=== PATIENT | female | born 1935 | race Caucasian/White ===

== ENCOUNTER 2016-12-04 07:35 | Inpatient (IN) | payer OTHER ==
[~2016-12-04] VITALS: Ht 167.6 cm; Wt 63.0 kg
--- NOTE | 2016-12-04 07:35 | NUR ---
Placed in room 2 . Placed on cardiac monitor technician, blood pressure machine and pulse oximeter. To gown for exam. Side rails up.Report given to darleen.
--- NOTE | 2016-12-04 07:35 | NUR ---
Pt was brought to bed 2 by ALS, pt complains of pain to the back of the head that radiates to the right neck and arm. Pt had a syncopal episode at home and hit head, pt states "it feels like a hammer hit her head", pt states she does not remember passing out but was on the floor. No hematoma or laceration noted to head, pt is aox 2, has some confusion. Pt states takes medications but does not remember what she takes. No other injuries/complaints per pt or noted.
[2016-12-04 07:38] VITALS: BP_SYST 154
--- NOTE | 2016-12-04 07:38 | NUR ---
ER at bedside examining patient.
--- NOTE | 2016-12-04 07:54 | NUR ---
# 20 gauge angiocath placed to LAC. Use of asceptic technique. Opsite placed over site. Blood return noted. Blood for lab drawn from site. Flushed with 10 cc of normal saline. No evidence of infiltration noted. Patient tolerated well.
--- NOTE | 2016-12-04 08:00 | NUR ---
Pt went to radiology in stable condition
[2016-12-04 08:05] LABS: BASOPHILS # (AUTO) 0.1 K/uL (0.0-0.2); BASOPHILS % (AUTO) 0.9 % (0.0-2.0); EOSINOPHILS # (AUTO) 0.3 K/uL (0.0-0.4); HEMATOCRIT 39.4 % (36-48); HEMOGLOBIN 12.5 g/dL (12.0-16.0); LYMPHOCYTES # (AUTO) 1.5 K/uL (1.0-5.5); LYMPHOCYTES % (AUTO) 26.4 % (20.5-51.5); MEAN CORPUSCULAR HEMOGLOBIN 29 pg (27-31); MEAN CORPUSCULAR HGB CONC 32 % (32-36); MEAN CORPUSCULAR VOLUME 90 fL (79.0-98.0); MONOCYTES # (AUTO) 0.5 K/uL (0.0-1.0); MONOCYTES % (AUTO) 8.1 % (1.7-9.3); NEUTROPHILS # (AUTO) 3.2 K/uL (1.8-7.7); NEUTROPHILS % (AUTO) 59.6 % (40.0-70.0); PLATELET COUNT (AUTO) 205 K/uL (130-430); RED BLOOD CELL COUNT(AUTO) 4.37 MIL/uL (4.2-6.2); RED CELL DISTRIBUTION WIDTH 12.9 % (9.0-15.0); WHITE BLOOD COUNT (AUTO) 5.6 K/uL (4.8-10.8)
[2016-12-04 08:09] LABS: ANION GAP 6 (5-15); CALCIUM 9.3 mg/dL (8.4-11.0); CHLORIDE 104 mmol/L (98-107); CREATININE 0.97 mg/dL (0.55-1.30); GLUCOSE 113 mg/dL (70-99); POTASSIUM 4.1 mmol/L (3.5-5.1); SODIUM SERUM 139 mmol/L (136-145); UREA NITROGEN, BLOOD 10 mg/dL (8-21)
[2016-12-04 08:14] LABS: ALANINE AMINOTRANSFERASE 21 U/L (12-78); ALBUMIN 3.5 g/dL (3.4-4.8); ASPARTATE AMINOTRANSFERASE 17 U/L (10-37); PROTHROMBIN TIME 10.5 SECS (9.5-12.5); TOTAL BILIRUBIN 0.4 mg/dL (0.0-1.0)
--- NOTE | 2016-12-04 08:25 | NUR ---
Pt returned from radiology in stable condiiton
--- NOTE | 2016-12-04 09:15 | NUR ---
Called son Stef and informed him that the pt will be admitted to the hospital, son states will come to see the pt later.
--- NOTE | 2016-12-04 09:50 | NUR ---
Patient will be admitted to care of Dr Ghotra. Admitted to telemetry unit. Will go to room 104A. Belongings list completed. Summary report printed. Report will be given at bedside.
[2016-12-04 10:05] VITALS: BP_SYST 144
--- NOTE | 2016-12-04 10:05 | NUR ---
ADMIT NOTE Received pt from ER to the floor with a diagnosis of Syncope. Admission process initiated. Patient oriented to pain management, call light within reach of patient
[2016-12-04 10:17] VITALS: BP_SYST 144
[2016-12-04] MEDS ORDERED: DONE5TAB3 PO (10:47)
[2016-12-04] MEDS ORDERED: TEMA15CA51 PO (10:47)
[2016-12-04] MEDS ORDERED: QUET50TA13 PO (10:47)
[2016-12-04] MEDS ORDERED: TEMAZEPAM 15 MG CAPSULE PO PRN (11:00)
--- NOTE | 2016-12-04 11:22 | NUR ---
CONSULT CARDIO SYNCOPE DR ROBERTO [phone] S/W [facility] @[id number]
--- NOTE | 2016-12-04 11:30 | NUR ---
RN ROUNDS PATIENT TRYING TO GET OUT OF BED, PATIENT REORIENTED TO SURROUNDINGS, PATIENT IS VERY ANXIOUS, WILL CONTINUE TO MONITOR,
--- NOTE | 2016-12-04 12:41 | NUR ---
RN ROUNDS PATIENT IS VERY CONFUSED, KEEPS GETTING UP OUT OF BED, NURSE AND STAFF REORIENTS PATIENT, PATIENT STILLS TRY TO GET OUT OF BED, PATIENT IS CLOSE TO NURSING STATION, WILL CONTINUE TO MONITOR, BED IN LOWEST POSITION, THREE SIDE RAILS UP, CALL LACY LEFT WITHIN REACH OF PATIENT, FALL PRECAUTIONS IN PLACE
--- NOTE | 2016-12-04 14:29 | NUR ---
RN ROUNDS PATIENT RESTING IN BED WITH EYES CLOSED, NO SIGNS OF DISTRESS NOTED, BREATHING IS EVEN AND UNLABORED, CALL LACY LEFT NEXT TO PATIENT'S HAND, FALL PRECAUTIONS IN PLACE WILL CONTINUE TO MONITOR
[2016-12-04 16:40] VITALS: BP_SYST 153
--- NOTE | 2016-12-04 16:55 | NUR ---
RN ROUNDS PATIENT LYING IN BED AT THE MOMENT, PATIENT IS CONFUSED, REORIENTED PATIENT BACK TO SURROUNDINGS, NO OTHER NEEDS AT THIS TIME, WILL CONTINUE TO MONITOR, FALL PRECAUTIONS IN PLACE.
--- NOTE | 2016-12-04 18:43 | NUR ---
CLOSING NOTE PATIENT IN STABLE CONDITION, ALL NEEDS MET, WILL ENDORSE PATIENT TO CAFE ASSOCIATE NURSE, PATIENT LYING IN BED, NO SIGNS OF DISTRESS NOTED, CALL LACY LEFT WITHIN REACH OF PATIENT, SIDE RAILS UP, BED ALARM ON, FALL PRECAUTIONS IN PLACE, WILL CONTINUE TO MONITOR.
[2016-12-04 20:00] VITALS: BP_SYST 134
--- NOTE | 2016-12-04 20:00 | NUR ---
Initial PM Assessment Pt was received fully awake and alert. Speech is clear and pt is able to make her needs known. Pt is oriented to her name and place. Pt is also forgetful. No c/o pain or discomfort and no acute distress noted. Saline locks in RFA and LAC are patent and without any signs of infiltration. Fall and safety precautions are in place. Call light is with pt and bed alarm is on. Pt was instructed not to get out of bed without calling for assistance and pt verbalized understanding. Will continue to monitor pt.
[2016-12-04] MEDS: QUEtiapine FUMARATE 25 MG TABLET PO SCH (20:39)
--- NOTE | 2016-12-04 20:39 | NUR ---
HS Medication/Snack HS medication given and pt ate 100% HS snack of 1 cup Custard. No c/o pain or discomfort. Call light is with pt and bed alarm is on.
--- NOTE | 2016-12-04 22:00 | NUR ---
Rounds Pt is sleeping comfortably in bed. No respiratory distress noted. Call light is with pt and bed alarm is on. Will continue to monitor pt.
[2016-12-05] VITALS (7 sets, daily range): BP systolic 118–146
--- NOTE | 2016-12-05 | NUR ---
Rounds Pt is sleeping without any distress noted. Call light is with pt and bed alarm is on.
--- NOTE | 2016-12-05 07:20 | NUR ---
AM ROUNDS: PATIENT AWAKE DURING ROUNDS. REPORT GIVEN AT BEDSIDE BY NIGHT NURSE CJ. CALL LIGHT WITH IN REACH. BED AT LOWEST POSITION AND LOCKED. BED ALARM ON. CONTINUE TO MONITOR.
[2016-12-05] MEDS: DONEPEZIL HCL 5 MG TABLET (ARICEPT) PO SCH (09:32)
--- NOTE | 2016-12-05 09:35 | NUR ---
Medications: Morning medication given to patient.
--- NOTE | 2016-12-05 11:00 | NUR ---
Urine: Assisted patient to the toilet, voided. Urine sample taken and sent to laboratory for urinalysis as ordered.
--- NOTE | 2016-12-05 12:17 | NUR ---
Rounds: Urine collected at this time. Patient is awake. She is eating her lunch tray at this time. Breathing comfortably no respiratory distress noted.
[2016-12-05 12:47] LABS: BILIRUBIN,URINE NEGATIVE (NEGATIVE); CLARITY/URINE CLEAR (CLEAR); COLOR,URINE YELLOW (YELLOW); GLUCOSE,URINE NEGATIVE (NEGATIVE); KETONES,URINE NEGATIVE (NEGATIVE); LEUKOCYTE ESTERASE ,URINE 3+ (NEGATIVE); NITRITE, URINE NEGATIVE (NEGATIVE); PROTEIN URINE NEGATIVE (NEGATIVE); UROBILINOGEN,URINE 0.2 (0.2-1.0)
[2016-12-05 12:48] LABS: BLOOD, URINE TRACE (NEGATIVE)
[2016-12-05 12:51] LABS: BACTERIA,URINE FEW /HPF (None Seen); RBC,URINE 0-3 /HPF (0-3)
--- NOTE | 2016-12-05 14:36 | NUR ---
Rounds: Patient asleep in her bed resting comfortably. Breathing even and non labored. No complain of pain.
--- NOTE | 2016-12-05 16:11 | NUR ---
ROUNDS: PATIENT IS RESTING IN HER BED. RESPIRATION NON LABORED. ASSISTED TO TOILET AND PATIENT WENT BACK TO BED. nO COMPLAIN OF DISCOMFORT.
[2016-12-05] MEDS ORDERED: TEMAZEPAM 15 MG CAPSULE PO PRN (17:33)
--- NOTE | 2016-12-05 17:36 | NUR ---
PSYCH CONSULT CALLED TO DR NESBITT, DR AGUILA IRON LAUNDER OPERATOR, RE: DEMENTIA. SPOKE TO ARCADIO
[2016-12-05] MEDS: cefTRIAXone 1 GM IVPB PREMIX 50 ML IV SCH (18:13)
--- NOTE | 2016-12-05 18:13 | NUR ---
IV NOTES: IV INFILTRATED. IV RE SITED AT LEFT FOREARM USING G#20,DUE IV ANTIBIOTICS GIVEN ORDERED.
--- NOTE | 2016-12-05 19:05 | NUR ---
Closing: Patient in her bed talking to her family. Her breathing is non labored and no acute distress noted. Antibiotic IV is infusing at this time. Tolerating without feeling discomfort. Family by the bedside talking to pt.
--- NOTE | 2016-12-05 19:35 | NUR ---
INITIAL NOTE Patient resting on the bed. No acute distress. Respiration even and unlabored. Verbally responsive with confusion. AO x 1. Denied of pain. Skin warm and dry to touch. SL intact to LFA, patent, no redness, no swelling. Discussed the safety issue, use call light within reached, and plan of care, verbally understanding. Safety measure maintained. Bed in low position, bed alarm on, side rails up. Call light within reached. Will continue to monitor.
--- NOTE | 2016-12-05 21:00 | NUR ---
ROUND Patient resting on the bed comfortable. No acute distress. safety measure maintained. Call light within reached. Bed in low position, side rails up, bed alarm on. Continue to monitor.
[2016-12-05] MEDS: QUEtiapine FUMARATE 25 MG TABLET PO SCH (21:41)
--- NOTE | 2016-12-05 22:50 | NUR ---
AMBULATED TO BATHROOM, NO ACUTE DISTRESS
[2016-12-06] VITALS (8 sets, daily range): BP systolic 108–148
--- NOTE | 2016-12-06 00:02 | NUR ---
ROUND Patient resting on the bed with eyes closed. No acute distress. Respiration even and unlabored. Safety measure maintained. Bed in low position, bed alarm on, side rails up. Call light within reached. Continue to monitor.
--- NOTE | 2016-12-06 02:05 | NUR ---
ROUND Patient resting on the bed with eyes closed. Respiration even and unlabored. No acute distress. Safety measure maintained. Bed in low position, side rails up, bed alarm on. Call light within reached. Continue to monitor.
--- NOTE | 2016-12-06 03:00 | NUR ---
NOTE Patient woke up and asked where am I? Reinstructed patient in hospital and the environment and told patient is safe to stay here, verbally understanding. Offered patient to use bathroom but patient that went already. Safety measure maintained. Bed in low position, bed alarm on, side rails up. Call light within reached. Continue to monitor.
--- NOTE | 2016-12-06 05:05 | NUR ---
ROUND Patient resting on the bed with eyes closed. No acute distress. Respiration even and unlabored. Safety measure maintained. Call light within reached. Bed in low position, bed alarm on, side rails up. Continue to monitor.
--- NOTE | 2016-12-06 06:42 | NUR ---
CLOSING NOTE Patient resting on the bed. No acute distress. Respiration even and unlabored. Just assisted to bathroom. Still with confusion and asked where she is. Reorientated the patient during shift. Skin warm and dry to touch. SL intact to LFA, patent, no redness, no swelling. All needs met. Hourly rounding during shift. Safety measure maintained. Bed in low position, bed alarm on, side rails up. Call light within reached. Will endorse to morning shift nurse.
[2016-12-06 07:06] LABS: ANION GAP 4 (5-15); CALCIUM 9.1 mg/dL (8.4-11.0); CHLORIDE 107 mmol/L (98-107); CREATININE 1.06 mg/dL (0.55-1.30); GLUCOSE 104 mg/dL (70-99); POTASSIUM 4.5 mmol/L (3.5-5.1); SODIUM SERUM 141 mmol/L (136-145); UREA NITROGEN, BLOOD 14 mg/dL (8-21)
[2016-12-06 07:30] LABS: BASOPHILS # (AUTO) 0.1 K/uL (0.0-0.2); BASOPHILS % (AUTO) 0.8 % (0.0-2.0); EOSINOPHILS # (AUTO) 0.4 K/uL (0.0-0.4); EOSINOPHILS % (AUTO) 6.8 % (0.0-4.0); HEMATOCRIT 40.6 % (36-48); HEMOGLOBIN 12.7 g/dL (12.0-16.0); LYMPHOCYTES # (AUTO) 2.1 K/uL (1.0-5.5); MEAN CORPUSCULAR HEMOGLOBIN 28 pg (27-31); MEAN CORPUSCULAR HGB CONC 31 % (32-36); MEAN CORPUSCULAR VOLUME 91 fL (79.0-98.0); MONOCYTES # (AUTO) 0.6 K/uL (0.0-1.0); MONOCYTES % (AUTO) 9.9 % (1.7-9.3); NEUTROPHILS # (AUTO) 3.1 K/uL (1.8-7.7); NEUTROPHILS % (AUTO) 48.5 % (40.0-70.0); PLATELET COUNT (AUTO) 193 K/uL (130-430); RED BLOOD CELL COUNT(AUTO) 4.47 MIL/uL (4.2-6.2); RED CELL DISTRIBUTION WIDTH 12.9 % (9.0-15.0); WHITE BLOOD COUNT (AUTO) 6.3 K/uL (4.8-10.8)
[2016-12-06] MEDS: DONEPEZIL HCL 5 MG TABLET (ARICEPT) PO SCH (08:24)
--- NOTE | 2016-12-06 09:15 | NUR ---
Mobility Walked by the PT using FWW standby assist after walking patient complaining of dizziness , back to bed , vitals sign taken WNL telemetry NSR , safety discussed with patient call light within reach , on bed alarm frequent monitoring.
--- NOTE | 2016-12-06 11:47 | NUR ---
Sitting in the bed ,reading magazine denies any dizziness , safety/fall precaution instructed on bed alarm, verbalized understanding will continue to monitor.
--- NOTE | 2016-12-06 12:30 | NUR ---
Patient awake/alert very confused ,but calm , walking inside the room back and fort, doesn't listen , going out of the room to the other station, frequent monitoring .
--- NOTE | 2016-12-06 13:36 | NUR ---
MADE A F/U CALL TO DR AGUILA , HONEYCOMB DECAPPER FOR DR NESBITT, RE: DEMENTIA. SPOKE TO BIANCA
--- NOTE | 2016-12-06 15:30 | NUR ---
Spoke to DR. Ghotra informed regarding patient is out of control doesn't want to stay in the room, psyche consult follow up earlier done , sitter ordered.
--- NOTE | 2016-12-06 16:30 | NUR ---
Seen and examined by the psychiatrist JOHNNA Donnelly ,with sitter at the bedside , patient is calm and cooperative,episode of confusion.
[2016-12-06] MEDS ORDERED: LORazepam 1 MG TABLET PO PRN (16:45)
[2016-12-06] MEDS: cefTRIAXone 1 GM IVPB PREMIX 50 ML IV SCH (18:09)
--- NOTE | 2016-12-06 18:50 | NUR ---
Due antibiotic completed without adverse reaction, calm and cooperative family member at the bedside.
--- NOTE | 2016-12-06 19:28 | NUR ---
NOTES; Seen Pt sitting up in bed talking to family members. Awake and oriented x1, confused. Reoriented to place, date, time and place. No acute distress. Respiration even and unlabored. Verbally responsive. Skin warm and dry to touch. IV saline lock to the left forearm, patent. No signs of infection noted on iv site. Discussed safety issue, use of call light to call for any need to assist. Pt verbalized understanding. Pt denies any pain or discomfort at this time. Safety measures in progress. Bed locked and in low position, side rails up x3,bed alarm on. Call light within reached. Will continue to monitor.
--- NOTE | 2016-12-06 20:34 | NUR ---
NOTES; FAMILY AT BEDSIDE, VISITING. PT IS IN BED, NO ACUTE DISTRESS NOTED. DENIES ANY PAIN AT THIS TIME. SAFETY MEASURES IN PROGRESS.
[2016-12-06] MEDS: QUEtiapine FUMARATE 25 MG TABLET PO SCH (20:40)
--- NOTE | 2016-12-06 20:44 | NUR ---
MEDICATION; SCHEDULED PO MEDICATION ADMINISTERED. PT TOLERATED MEDICATION WELL.
--- NOTE | 2016-12-06 21:30 | NUR ---
NOTES; PT IS IN BED, APPEARED TO BE SLEEPING. EYES CLOSED, RESPIRATION EVEN AND UNLABORED. SAFETY MEASURES IN PROGRESS.
--- NOTE | 2016-12-06 23:28 | NUR ---
NOTES; PT IS IN BED, APPEARED TO BE SLEEPING. EYES CLOSED, RESPIRATION EVEN AND UNLABORED. SAFETY MEASURES IN PROGRESS.
--- NOTE | 2016-12-07 00:56 | NUR ---
NOTES; PT IS IN BED, APPEARED TO BE SLEEPING. EYES CLOSED, RESPIRATION EVEN AND UNLABORED. SAFETY MEASURES IN PROGRESS.
--- NOTE | 2016-12-07 02:00 | NUR ---
NOTES; PT IS IN BED, APPEARED TO BE SLEEPING. EYES CLOSED, RESPIRATION EVEN AND UNLABORED. SAFETY MEASURES IN PROGRESS.
--- NOTE | 2016-12-07 04:00 | NUR ---
NOTES; PT IS IN BED, APPEARED TO BE SLEEPING. EYES CLOSED, RESPIRATION EVEN AND UNLABORED. SAFETY MEASURES IN PROGRESS.
[2016-12-07 05:00] VITALS: BP_SYST 139
--- NOTE | 2016-12-07 05:59 | NUR ---
NOTES; PT IS IN BED, APPEARED TO BE SLEEPING. EYES CLOSED, RESPIRATION EVEN AND UNLABORED. SAFETY MEASURES IN PROGRESS.
[2016-12-07 07:55] VITALS: BP_SYST 116
--- NOTE | 2016-12-07 08:00 | NUR ---
AM Initial Notes Pt aaox2 with confusion. No complaints of pain or discomfort. No distress noted. tram operator in place. Fall and safety precautions enforced with sitter inside room. Will monitor.
[2016-12-07] MEDS: DONEPEZIL HCL 5 MG TABLET (ARICEPT) PO SCH (08:09)
--- NOTE | 2016-12-07 10:20 | NUR ---
Ativan Medicated patient with Ativan due to confusion, restlessness, anxious and crying about belongings she does not have with her here in the hospital. Calming and comfort measures also given.
--- NOTE | 2016-12-07 11:25 | NUR ---
Confused Pt very confused talks nonsense and looking for personal belongings repetitively that are not with her. Reorient patient with informations. Will monitor. Sitter inside room.
[2016-12-07 11:32] VITALS: BP_SYST 128
[2016-12-07] MEDS ORDERED: CEPH-568 PO (13:18)
--- NOTE | 2016-12-07 14:41 | NUR ---
Rounds Pt awake and confused crying and looking for belongings that she never brought from home. No complaints of pain or discomfort. No distress noted. Calming and comfort measures done. Will continue to monitor.
[2016-12-07 14:56] VITALS: BP_SYST 144
[2016-12-07] MEDS ORDERED: CEPHALEXIN 500 MG CAPSULE PO SCH (15:00)
--- NOTE | 2016-12-07 16:00 | NUR ---
Clarence Bustillo Called and spoke with son of patient, Clarence Bustillo. Informed son that mother is already to be discharged home. Informed about transitional care medication Keflex 500mg #28 to take three times a day and follow up with primary care physician in one week. Son will call his cousin to pick her up.
--- NOTE | 2016-12-07 16:59 | NUR ---
Rounds Pt confused and continues to look for her personal belongings that she never brought to the hospital. Pt also getting anxious and restless while waiting for he son to pick her up. Calming and comfort measures done. Sitter inside room. Will continue to monitor.
--- NOTE | 2016-12-07 17:25 | NUR ---
Discharge Discharge patient with grand daughter, Madalyn Barnes. Transitional care instructions and handout explained and given. D/C public transit specialist. Vital signs stable. D/C IV and dressing applied. Pt left floor ambulating with nurse to private vehicle. No distress noted.
--- NOTE | 2016-12-10 14:01 | NUR ---
Discharge Follow Up Phone Call TURNING MACHINE OPERATOR phoned [facility], , where patient resides. The staff there stated that patient seemed to be doing well, back to baseline, and was walking quite a bit. Patient remains baseline confused. TURNING MACHINE OPERATOR phoned patient's son, . He filled patient's prescription. He will make patient's follow up appointment with her PCP today. He had no questions or concerns.
== END 2016-12-07 17:25 | disposition home or self-care (01) | DRG 690 ==
LOC: SED 07:35 → STU 09:40
PROVIDERS: ADMIT Internal Medicine; ATTEND Internal Medicine
DX: N39.0 Urinary tract infection, site not specified (principal); G30.9 Alzheimer's disease, unspecified; F05 Delirium due to known physiological condition; F02.81 Dementia in other diseases classified elsewhere, unspecified severity, with behavioral disturbance; R55 Syncope and collapse; Z79.899 Other long term (current) drug therapy
CPT/HCPCS: 36415; 70450-TC; 71010; 72125-TC; 80048; 80053; 81000-TC; 82550-TC; 84484; 85025; 85610-TC; 85730-TC; 87086; 93005; 93306; 93880; 97110-GP; 97116-GP; 97530-GP; 99285; J0696; J7050